=== PATIENT | male | born 1940 | race Caucasian/White ===

== ENCOUNTER 2017-03-04 16:36 | Emergency (ER) | payer MEDICARE ==
[~2017-03-04] VITALS: Ht 180.3 cm; Wt 105.4 kg
[~2017-03-04 16:36] MED LIST: ACET-1757 PO; ASPI-621 PO; BIFI4CAP PO; BISA10SU2 PR; DOCU-30 PO; DOCU100T3 PO; ENOX40SY4 SQ; EVOL140S INJ; FLUO20CA8 PO; FLUO40CA2 PO; INSU100V5 SQ-INSULIN; LORA0.5T PO; MAGN400O4 PO; METF500T27 PO; OLAN10TA9 PO; POLY17PO5 PO; QUET100T4 PO; TEST1.25 TP
[2017-03-04] MEDS ORDERED: MECLIZINE CHEWABLE 25 MG TAB ONE (17:13)
[2017-03-04] MEDS ORDERED: SODIUM CHLORIDE 0.9% 1,000ML IVBOLUS ONE (17:30)
[2017-03-04] MEDS ORDERED: SODIUM CHLORIDE FLUSH 10ML SYR IVF ONE (17:30)
[2017-03-04] MEDS ORDERED: MECLIZINE CHEWABLE 25 MG TAB PO ONE (17:30)
[2017-03-04 18:03] LABS: BLOOD UREA NITROGEN 27 mg/dL (7-18)
[2017-03-04 18:36] VITALS: BP 122/76
== END 2017-03-04 19:13 | disposition home or self-care (01) ==
LOC: ED 18:46
DX: R42 Dizziness and giddiness (principal); E86.0 Dehydration; N18.9 Chronic kidney disease, unspecified; Z85.528 Personal history of other malignant neoplasm of kidney; Z85.46 Personal history of malignant neoplasm of prostate; Z90.5 Acquired absence of kidney
CPT/HCPCS: 36415; 80048; 82040; 85025; 93005; 96360; 99285; J7030

== ENCOUNTER 2017-10-06 14:44 | Emergency (ER) | payer MEDICARE ==
[~2017-10-06] VITALS: Ht 172.7 cm; Wt 110.4 kg
[~2017-10-06 14:44] MED LIST changes: +DOCU-131 PO; -DOCU-30 PO; -MAGN400O4 PO; +MAGN400O7 PO
[2017-10-06 14:45] VITALS: BP 127/75
[2017-10-06 16:51] LABS: ALANINE AMINOTRANSFERASE 33 U/L (12-78); ALBUMIN 3.2 g/dL (3.4-5.0); ANION GAP 4 mmol/L (5-15); CALCIUM 9.5 mg/dL (8.5-10.1); CHLORIDE 103 mmol/L (98-107); CREATININE 1.58 mg/dL (0.7-1.3)
[2017-10-06 16:53] LABS: BASOPHILS # (AUTO) 0.01 x10^3/uL (0-0.1); BASOPHILS % (AUTO) 0 % (0-1); EOSINOPHILS % (AUTO) 5 % (1-7); LYMPHOCYTES # (AUTO) 1.57 x10^3/uL (1-3.4); LYMPHOCYTES % (AUTO) 15 % (22-44); MEAN CORPUSCULAR HGB CONC 33.5 g/dL (33.2-36.2); MEAN CORPUSCULAR VOLUME 92.6 fL (81-97); MEAN PLATELET VOLUME 10.5 fL (7.4-10.4); MONOCYTES # (AUTO) 0.78 x10^3/uL (0.2-0.8); MONOCYTES % (AUTO) 7 % (2-9); NEUTROPHILS # (AUTO) 7.85 x10^3/uL (1.8-6.8); NEUTROPHILS % (AUTO) 73 % (42-75); PLATELET COUNT 252 x10^3/uL (130-400); RED BLOOD COUNT 4.86 x10^6/uL (4.38-5.82); RED CELL DISTRIBUTION WIDTH 14.3 % (9.4-14.8)
[2017-10-06 16:54] LABS: ALKALINE PHOSPHATASE 87 U/L (45-117); BILIRUBIN,TOTAL 0.2 mg/dL (0.2-1.0); TOTAL PROTEIN 7.2 g/dL (6.4-8.2)
[2017-10-06 16:59] LABS: MICROSCOPIC NOT IND
[2017-10-06 16:59] LABS: <RBC MORPHOLOGY> NORMAL; MD MORPH REVIEW ONLY
[2017-10-06 17:00] LABS: <PLATELET ESTIMATE> ADEQUATE; LARGE PLATELETS 1+
[2017-10-06 17:02] LABS: HEMOGRAM NOTE RECHECKED
[2017-10-06 17:05] LABS: LYMPH#(MANUAL) 1.61 x10^3/uL (1-3.4); LYMPHS% (MANUAL) 15 % (22-44); MONOS#(MANUAL) 0.75 x10^3/uL (0.3-2.7); MONOS% (MANUAL) 7 % (2-9); SEG#(MANUAL) 7.81 x10^3/uL (1.8-6.8); SEGS% (MANUAL) 73 % (42-75)
[2017-10-06 17:06] LABS: BASOS% (MANUAL) 0 % (0-1); EOS#(MANUAL) 0.54 x10^3/uL (0.0-0.4); EOS% (MANUAL) 5 % (1-7)
[2017-10-06 17:15] LABS: CULTURE INDICATED? NO
== END 2017-10-06 18:43 | disposition home or self-care (01) ==
LOC: ED 15:54
DX: R53.1 Weakness (principal); E86.0 Dehydration
CPT/HCPCS: 36415; 71010; 80053; 80307; 81003; 85025; 93005; 99285; G0479

== ENCOUNTER 2018-03-02 08:19 | Inpatient (IN) | payer MEDICARE ==
[~2018-03-02] VITALS: Ht 180.3 cm; Wt 108.4 kg
[2018-03-02] MEDS ORDERED: SODIUM CHLORIDE FLUSH 10ML SYR IVF ONE (09:00)
[2018-03-02] MEDS ORDERED: ALBUTEROL/IPRATROPIUM 2.5MG/0.5MG, 3 ML NPPB ONE (09:00)
[2018-03-02 09:13] LABS: BASOPHILS # (AUTO) 0.01 x10^3/uL (0-0.1); BASOPHILS % (AUTO) 0 % (0-1); EOSINOPHILS # (AUTO) 0.31 x10^3/uL (0-0.4); EOSINOPHILS % (AUTO) 3 % (1-7); LYMPHOCYTES # (AUTO) 1.39 x10^3/uL (1-3.4); LYMPHOCYTES % (AUTO) 13 % (22-44); MD NO; MEAN CORPUSCULAR HEMOGLOBIN 30.4 pg (27.5-34.5); MEAN CORPUSCULAR HGB CONC 33.5 g/dL (33.2-36.2); MEAN CORPUSCULAR VOLUME 90.6 fL (81-97); MEAN PLATELET VOLUME 8.8 fL (7.4-10.4); MONOCYTES % (AUTO) 6 % (2-9); NEUTROPHILS % (AUTO) 78 % (42-75); PLATELET COUNT 201 x10^3/uL (130-400); RED BLOOD COUNT 4.78 x10^6/uL (4.38-5.82); RED CELL DISTRIBUTION WIDTH 14.9 % (9.4-14.8)
[2018-03-02 09:27] LABS: ALBUMIN 3.1 g/dL (3.4-5.0); ANION GAP 10 mmol/L (5-15); CALCIUM 8.5 mg/dL (8.5-10.1); CHLORIDE 109 mmol/L (98-107)
[2018-03-02 09:32] LABS: ALANINE AMINOTRANSFERASE 37 U/L (12-78); ALKALINE PHOSPHATASE 91 U/L (45-117); BILIRUBIN,TOTAL 0.6 mg/dL (0.2-1.0); CREATININE 1.77 mg/dL (0.7-1.3); TROPONIN I 0.084 ng/mL (0.000-0.045)
[2018-03-02] MEDS ORDERED: ASPIRIN 81 MG TABLET CHEW ONE (09:46)
[2018-03-02] MEDS ORDERED: ASPIRIN 81 MG TABLET CHEW PO ONE (10:00)
[2018-03-02 10:01] LABS: MICROSCOPIC NOT IND
[2018-03-02 10:03] LABS: CULTURE INDICATED? NO
[2018-03-02 10:20] LABS: T4 (THYROXINE) 8.4 mcg/dL (4.5-12.1)
[2018-03-02 10:28] LABS: THYROID STIMULATING HORMONE 1.87 mIU/L (0.358-3.740)
[2018-03-02] MEDS ORDERED: RIVA1PAT23 TD (10:43)
[2018-03-02] MEDS ORDERED: FINA5TAB4 PO (10:43)
[2018-03-02 11:12] VITALS: BP 137/85
[2018-03-02] MEDS ORDERED: ACETAMINOPHEN 325 MG TABLET PO PRN (13:30)
[2018-03-02] MEDS ORDERED: ONDANSETRON 2MG/ML, 2ML IVPush PRN (13:30)
[2018-03-02] MEDS ORDERED: hydrALAzine 20 MG/ML, 1ML IVPush PRN (13:30)
[2018-03-02 14:37] VITALS: BP 138/85
[2018-03-02] MEDS: FUROSEMIDE 20 MG/2 ML IV SCH (17:14)
[2018-03-02] MEDS: METOPROLOL TARTRATE 25 MG TABLET PO SCH (17:15)
[2018-03-02 19:22] VITALS: BP 108/70
[2018-03-02 22:16] LABS: TROPONIN I 0.092 ng/mL (0.000-0.045)
[2018-03-03] VITALS (13 sets, daily range): BP systolic 104–172; BP diastolic 69–94
[2018-03-03 05:11] LABS: TROPONIN I 0.118 ng/mL (0.000-0.045)
[2018-03-03 05:13] LABS: HEMOGLOBIN A1C 6.6 % (4.2-6.3)
[2018-03-03] MEDS: METOPROLOL TARTRATE 25 MG TABLET PO SCH ×2 (05:52→17:15)
[2018-03-03 07:10] LABS: ALANINE AMINOTRANSFERASE 35 U/L (12-78); ALBUMIN 3.1 g/dL (3.4-5.0); ANION GAP 9 mmol/L (5-15); CALCIUM 8.7 mg/dL (8.5-10.1); CHLORIDE 108 mmol/L (98-107); CREATININE 1.69 mg/dL (0.7-1.3)
[2018-03-03 07:13] LABS: ALKALINE PHOSPHATASE 90 U/L (45-117); BILIRUBIN,TOTAL 0.3 mg/dL (0.2-1.0); TOTAL PROTEIN 6.9 g/dL (6.4-8.2)
[2018-03-03 07:18] LABS: CHOL/HDL RATIO 5.9; LDL/HDL RATIO 4.1 (0.5-3.0)
[2018-03-03 07:27] LABS: CREATININE,URINE RANDOM 64.2 mg/dL
[2018-03-03] MEDS: FUROSEMIDE 20 MG/2 ML IV SCH ×2 (07:30→17:14)
[2018-03-03] MEDS: FINASTERIDE 5 MG TABLET PO SCH (09:15)
[2018-03-03] MEDS: ASPIRIN 81 MG TABLET EC PO SCH (09:15)
[2018-03-03] MEDS: ENOXAPARIN 30 MG/0.3 ML SQ SCH (09:15)
[2018-03-03] MEDS ORDERED: REGADENOSON 0.4 MG/5 ML SYRINGE ONE (10:15)
[2018-03-03] MEDS: POTASSIUM CHLORIDE 20 MEQ TAB.ER.PRT PO SCH (13:16)
[2018-03-03] MEDS: RIVASTIGMINE 9.5MG/24HR PATCH TD SCH (13:16)
[2018-03-03 13:41] LABS: CHLORIDE,URINE RANDOM 87 mmol/L; POTASSIUM,URINE RANDOM 39 mmol/L; SODIUM,URINE RANDOM 84 mmol/L
[2018-03-03] MEDS ORDERED: ATORVASTATIN 40 MG TABLET PO SCH (21:00)
[2018-03-04 03:00] VITALS: BP 144/85
[2018-03-04 05:27] LABS: BASOPHILS # (AUTO) 0.05 x10^3/uL (0-0.1); BASOPHILS % (AUTO) 0 % (0-1); EOSINOPHILS # (AUTO) 0.61 x10^3/uL (0-0.4); EOSINOPHILS % (AUTO) 5 % (1-7); LYMPHOCYTES # (AUTO) 1.78 x10^3/uL (1-3.4); LYMPHOCYTES % (AUTO) 15 % (22-44); MD NO; MEAN CORPUSCULAR HEMOGLOBIN 30.4 pg (27.5-34.5); MEAN CORPUSCULAR HGB CONC 33.3 g/dL (33.2-36.2); MEAN CORPUSCULAR VOLUME 91.4 fL (81-97); MEAN PLATELET VOLUME 9.2 fL (7.4-10.4); MONOCYTES # (AUTO) 1.15 x10^3/uL (0.2-0.8); MONOCYTES % (AUTO) 10 % (2-9); NEUTROPHILS # (AUTO) 8.19 x10^3/uL (1.8-6.8); NEUTROPHILS % (AUTO) 70 % (42-75); PLATELET COUNT 207 x10^3/uL (130-400); RED BLOOD COUNT 4.75 x10^6/uL (4.38-5.82); RED CELL DISTRIBUTION WIDTH 14.7 % (9.4-14.8)
[2018-03-04 05:32] LABS: ALANINE AMINOTRANSFERASE 40 U/L (12-78); ALBUMIN 3.1 g/dL (3.4-5.0); ANION GAP 8 mmol/L (5-15); CALCIUM 8.8 mg/dL (8.5-10.1); CHLORIDE 107 mmol/L (98-107); CREATININE 1.75 mg/dL (0.7-1.3)
[2018-03-04 05:35] LABS: ALKALINE PHOSPHATASE 83 U/L (45-117); BILIRUBIN,TOTAL 0.5 mg/dL (0.2-1.0)
[2018-03-04] MEDS: METOPROLOL TARTRATE 25 MG TABLET PO SCH (06:00)
[2018-03-04 07:13] VITALS: BP 126/80
[2018-03-04] MEDS: POTASSIUM CHLORIDE 20 MEQ TAB.ER.PRT PO SCH (08:48)
[2018-03-04] MEDS: ASPIRIN 81 MG TABLET EC PO SCH (08:48)
[2018-03-04] MEDS: FUROSEMIDE 20 MG/2 ML IV SCH (08:48)
[2018-03-04] MEDS: FINASTERIDE 5 MG TABLET PO SCH (08:48)
[2018-03-04] MEDS: RIVASTIGMINE 9.5MG/24HR PATCH TD SCH (08:49)
[2018-03-04] MEDS: ENOXAPARIN 30 MG/0.3 ML SQ SCH (08:49)
[2018-03-04] MEDS ORDERED: ATOR40TA78 PO (11:38)
[2018-03-04] MEDS ORDERED: POTA20TA6 PO (11:38)
[2018-03-04] MEDS ORDERED: METO25TA35 PO (11:38)
[2018-03-04] MEDS ORDERED: FURO40TA6 PO (11:38)
[2018-03-04 12:11] VITALS: BP 108/73
== END 2018-03-04 15:50 | disposition home or self-care (01) | DRG 291 ==
LOC: ED 09:32 → EDIP 10:00 → 5SO 11:01 → DCLOUNGE 03-04 15:30
PROVIDERS: ADMIT Hospitalist; ATTEND Hospitalist
DX: I13.0 Hypertensive heart and chronic kidney disease with heart failure and stage 1 through stage 4 chronic kidney disease, or unspecified chronic kidney disease (principal); I50.23 Acute on chronic systolic (congestive) heart failure; N17.9 Acute kidney failure, unspecified; E11.22 Type 2 diabetes mellitus with diabetic chronic kidney disease; Z99.81 Dependence on supplemental oxygen; G30.1 Alzheimer's disease with late onset; F02.80 Dementia in other diseases classified elsewhere, unspecified severity, without behavioral disturbance, psychotic disturbance, mood disturbance, and anxiety; I25.10 Atherosclerotic heart disease of native coronary artery without angina pectoris; E78.5 Hyperlipidemia, unspecified; G47.33 Obstructive sleep apnea (adult) (pediatric); I35.0 Nonrheumatic aortic (valve) stenosis; N18.3 Chronic kidney disease, stage 3 (moderate); N40.0 Benign prostatic hyperplasia without lower urinary tract symptoms; R79.1 Abnormal coagulation profile; Z85.46 Personal history of malignant neoplasm of prostate; Z80.1 Family history of malignant neoplasm of trachea, bronchus and lung; Z80.0 Family history of malignant neoplasm of digestive organs; Z79.82 Long term (current) use of aspirin; Z86.73 Personal history of transient ischemic attack (TIA), and cerebral infarction without residual deficits; Z87.891 Personal history of nicotine dependence; Z90.5 Acquired absence of kidney; Z95.5 Presence of coronary angioplasty implant and graft; Z95.818 Presence of other cardiac implants and grafts; Z79.899 Other long term (current) drug therapy; I25.2 Old myocardial infarction
CPT/HCPCS: 36415; 71045; 71250; 78452; 78582; 80053; 80061; 81003; 82436; 82570; 83036; 83605; 83735; 83880; 84100; 84133; 84156; 84300; 84436; 84443; 84484; 85025; 85379; 87040; 93005; 93017; 93306; 99285; J1650; J2785; A9502; A9540; A9558; C9898; J1940; J7512

== ENCOUNTER → 2020-06-15 | Outpatient (CLI) | payer MEDICARE ==
[~2020-06-15] MED LIST changes: -ACET-1757 PO; +ACET-2065 PO; -ASPI-621 PO; +ASPI81TA45 PO; +ATOR40TA78 PO; -BISA10SU2 PR; +BISA10SU4 PR; -EVOL140S INJ; +EVOL140S2 INJ; +FINA5TAB4 PO; +FLUO20CA23 PO; -FLUO20CA8 PO; +FURO40TA6 PO; +METO25TA35 PO; +POTA20TA6 PO; +RIVA1PAT23 TD
== END | disposition home or self-care (01) ==
LOC: CVU 07:31
PROVIDERS: ATTEND Internal Medicine Cardiovascular Disease
DX: I08.0 Rheumatic disorders of both mitral and aortic valves (principal)
CPT/HCPCS: 93306; 93356

== ENCOUNTER 2020-07-19 09:30 | Outpatient (CLI) | payer MEDICARE | END 2020-07-19 23:59 | disposition home or self-care (01) | LOC: CVU 09:30 → RAD 23:59 | PROVIDERS: ATTEND Internal Medicine Cardiovascular Disease | DX: Z01.810 Encounter for preprocedural cardiovascular examination (principal); I65.23 Occlusion and stenosis of bilateral carotid arteries; K57.30 Diverticulosis of large intestine without perforation or abscess without bleeding; R06.02 Shortness of breath; I35.0 Nonrheumatic aortic (valve) stenosis; I25.10 Atherosclerotic heart disease of native coronary artery without angina pectoris; I70.0 Atherosclerosis of aorta; K76.89 Other specified diseases of liver; I77.810 Thoracic aortic ectasia; I77.1 Stricture of artery | CPT/HCPCS: 71250; 74176; 93880; 93978; 94060; 94726; 94729 ==

== ENCOUNTER 2020-08-05 09:37 | Day surgery (SDC) | payer MEDICARE ==
[~2020-08-05] VITALS: Ht 180.3 cm; Wt 134.1 kg
[2020-08-05] MEDS ORDERED: GLIM2TAB7 PO (10:18)
[2020-08-05] MEDS ORDERED: QUET25TA7 PO (10:18)
[2020-08-05 10:27] VITALS: BP 108/61
[2020-08-05] MEDS ORDERED: SODIUM CHLORIDE 0.9% 1,000 ML IV SCH ×2 (10:30→13:00)
[2020-08-05 10:46] LABS: BASOPHILS % (AUTO) 1 % (0-1); EOSINOPHILS % (AUTO) 4 % (1-7); LYMPHOCYTES % (AUTO) 15 % (22-44); MEAN CORPUSCULAR HEMOGLOBIN 29.3 pg (27.5-34.5); MEAN CORPUSCULAR HGB CONC 32.2 g/dL (33.2-36.2); MEAN PLATELET VOLUME 8.3 fL (7.4-10.4); MONOCYTES % (AUTO) 10 % (2-9); NEUTROPHILS % (AUTO) 70 % (42-75); PLATELET COUNT 189 x10^3/uL (130-400); RED BLOOD COUNT 4.65 x10^6/uL (4.38-5.82)
[2020-08-05] MEDS ORDERED: MIDAZOLAM 1 MG/ML, 2ML ONE (10:48)
[2020-08-05] MEDS ORDERED: FENTANYL PF 100 MCG/2ML ONE (10:48)
[2020-08-05] MEDS ORDERED: HEPARIN 1,000 UNITS/ML, 10ML ONE (10:49)
[2020-08-05] MEDS ORDERED: LIDOCAINE-MPF 1%, 5ML ONE (10:49)
[2020-08-05] MEDS ORDERED: VERAPAMIL 2.5 MG/ML, 2ML ONE (10:49)
[2020-08-05 10:53] LABS: ANION GAP 5 mmol/L (5-15); CALCIUM 8.9 mg/dL (8.5-10.1); CHLORIDE 110 mmol/L (98-107); CREATININE 1.74 mg/dL (0.7-1.3)
[2020-08-05 11:06] LABS: MD NO
[2020-08-11] MEDS ORDERED: AMOX-291 PO (11:24)
== END 2020-08-05 14:30 | disposition home or self-care (01) ==
LOC: CACL 09:37
PROVIDERS: ATTEND Internal Medicine Cardiovascular Disease
DX: R07.9 Chest pain, unspecified (principal); Z20.828 Contact with and (suspected) exposure to other viral communicable diseases; I25.10 Atherosclerotic heart disease of native coronary artery without angina pectoris; I35.0 Nonrheumatic aortic (valve) stenosis; E11.22 Type 2 diabetes mellitus with diabetic chronic kidney disease; I12.9 Hypertensive chronic kidney disease with stage 1 through stage 4 chronic kidney disease, or unspecified chronic kidney disease; N18.9 Chronic kidney disease, unspecified; E78.5 Hyperlipidemia, unspecified; G47.30 Sleep apnea, unspecified; Z79.82 Long term (current) use of aspirin; Z79.84 Long term (current) use of oral hypoglycemic drugs; Z79.899 Other long term (current) drug therapy; Z85.46 Personal history of malignant neoplasm of prostate; Z85.51 Personal history of malignant neoplasm of bladder; Z87.891 Personal history of nicotine dependence; Z90.5 Acquired absence of kidney; Z95.5 Presence of coronary angioplasty implant and graft; Z99.81 Dependence on supplemental oxygen
CPT/HCPCS: 36415; 80048; 85025; 87635; 93454; 99156; C1769; C1894; J1644; J2250; J3010; Q9967